=== PATIENT | female | born 1930 | race Caucasian/White ===

== ENCOUNTER 2017-10-25 09:49 | Emergency (ER) | payer MEDICARE, MEDICAID ==
[~2017-10-25] VITALS: Ht 160 cm; Wt 56.4 kg
[~2017-10-25 09:49] MED LIST: ADV50250 IH; CETI-1 PO; CITA-278 PO; COMIN IH; DOCU-28 PO; ESOM20CA PO; IBUP-1984 PO; LEVO88TA28 PO; MOME17SP NS; MONT10TA21 PO; ONDA8TAB13 PO
[2017-10-25 10:36] LABS: BASOPHILS # (AUTO) 0.1 X10'3 (0-0.2); EOSINOPHILS # (AUTO) 1.4 X10'3 (0-0.9); EOSINOPHILS % (AUTO) 17.4 % (0-6); HEMOGLOBIN 12.6 g/dl (12.0-16.0); LYMPHOCYTES # (AUTO) 2.6 X10'3 (1.1-4.8); LYMPHOCYTES % (AUTO) 31.3 % (21-51); MEAN CORPUSCULAR HEMOGLOBIN 29.6 PG (27.0-31.0); MEAN CORPUSCULAR HGB CONC 34.1 % (33.0-36.5); MEAN PLATELET VOLUME 8.4 FL (7.4-10.4); MONOCYTES # (AUTO) 0.5 X10'3 (0-0.9); MONOCYTES % (AUTO) 6.3 % (2-12); NEUTROPHILS # (AUTO) 3.7 X10'3 (1.8-7.7); PLATELET COUNT 246 X10'3 (140-440); RED BLOOD COUNT 4.26 X10'6 (4.20-5.60); RED CELL DISTRIBUTION WIDTH 14.5 % (11.5-14.5); WHITE BLOOD COUNT 8.3 X10'3 (4.5-11.0)
[2017-10-25 10:48] LABS: PARTIAL THROMBOPLASTIN TIME 26 SECONDS (22-32); PROTHROMBIN TIME 10.3 SECONDS (9.0-12.0)
[2017-10-25 10:52] LABS: ALANINE AMINOTRANSFERASE 23 U/L (12-78); ALBUMIN 3.4 G/DL (3.4-5.0); ALBUMIN/GLOBULIN RATIO 0.9 (1.1-1.5); ALKALINE PHOSPHATASE 72 IU/L (46-116); ANION GAP 8 (8-16); ASPARTATE AMINO TRANSFERASE 23 U/L (10-37); BILIRUBIN,TOTAL 0.3 MG/DL (0.1-1.0); BLOOD UREA NITROGEN 15 MG/DL (7-18); BUN/CREATININE RATIO 14.2 (6.6-38.0); CHLORIDE 108 MMOL/L (99-107); CREATININE 1.06 MG/DL (0.40-0.90); GLUCOSE 112 MG/DL (70-104); POTASSIUM 3.7 MMOL/L (3.5-5.1); SODIUM 142 MMOL/L (135-145); TOTAL PROTEIN 7.3 G/DL (6.4-8.2); eGFR 49 ML/MIN
[2017-10-25] MEDS ORDERED: methylPREDNISolone sod succ 125mg/2ml vial IV ONE (11:45)
[2017-10-25] MEDS ORDERED: ipratropium/albuterol 3ml nebule NEB ONE (11:45)
[2017-10-25] MEDS ORDERED: doxycycline hyclate 100mg tablet.DR PO STA (13:03)
[2017-10-25] MEDS ORDERED: PRED50TA PO (13:05)
[2017-10-25] MEDS ORDERED: DOXY100C43 PO (13:05)
[2017-10-25 13:37] VITALS: BP 156/76
== END 2017-10-25 13:39 | disposition home or self-care (01) ==
LOC: ER 09:51
DX: J44.1 Chronic obstructive pulmonary disease with (acute) exacerbation (principal); I25.10 Atherosclerotic heart disease of native coronary artery without angina pectoris; K21.9 Gastro-esophageal reflux disease without esophagitis; M81.0 Age-related osteoporosis without current pathological fracture; Z60.2 Problems related to living alone; Z88.8 Allergy status to other drugs, medicaments and biological substances; Z79.899 Other long term (current) drug therapy
CPT/HCPCS: 36415; 71045; 80053; 83880; 84484; 85025; 85610; 85730; 93005; 94640; 94760; 96374; 99285; J2930

== ENCOUNTER 2017-10-30 16:09 | Emergency (ER) | payer MEDICARE, MEDICAID ==
[~2017-10-30] VITALS: Ht 160 cm; Wt 56.8 kg
[~2017-10-30 16:09] MED LIST changes: +DOXY100C43 PO; +PRED50TA PO
[2017-10-30] MEDS ORDERED: ondansetron/PF 4mg/2ml inj IV ONE (16:15)
[2017-10-30] MEDS ORDERED: famotidine/PF 10 mg/ml inj IV ONE (16:15)
[2017-10-30] MEDS ORDERED: normal saline 1000ML IV soln IVB ONE (16:15)
[2017-10-30 16:46] LABS: BASOPHILS % (AUTO) 0.1 % (0-1); EOSINOPHILS % (AUTO) 0 % (0-6); LYMPHOCYTES # (AUTO) 1.9 X10'3 (1.1-4.8); LYMPHOCYTES % (AUTO) 23.9 % (21-51); MEAN CORPUSCULAR HEMOGLOBIN 29.1 PG (27.0-31.0); MEAN CORPUSCULAR HGB CONC 33.5 % (33.0-36.5); MEAN PLATELET VOLUME 8.5 FL (7.4-10.4); MONOCYTES # (AUTO) 0.3 X10'3 (0-0.9); MONOCYTES % (AUTO) 3.8 % (2-12); NEUTROPHILS # (AUTO) 5.7 X10'3 (1.8-7.7); NEUTROPHILS % (AUTO) 72.2 % (42-75); PLATELET COUNT 211 X10'3 (140-440); RED BLOOD COUNT 3.79 X10'6 (4.20-5.60); RED CELL DISTRIBUTION WIDTH 14.2 % (11.5-14.5); WHITE BLOOD COUNT 7.9 X10'3 (4.5-11.0)
[2017-10-30 16:50] VITALS: BP 162/79
[2017-10-30 16:50] LABS: CLARITY,URINE CLOUDY (Clear); COLOR,URINE YELLOW (Yellow); GLUCOSE, URINE NEGATIVE (Neg); KETONES,URINE TRACE mg/dl (Neg); LEUKOCYTE ESTERASE ,URINE NEGATIVE (Neg); NITRITES, URINE NEGATIVE (Neg); OCCULT BLOOD,URINE NEGATIVE (Neg); PROTEIN,URINE NEGATIVE (Neg); UROBILINOGEN,URINE 0.2 E.U/dL (0.2-1.0)
[2017-10-30 16:53] LABS: UA COLLECTION TYPE CLN CATCH MIDSTREAM
[2017-10-30 16:58] LABS: CAL OXALATE CRYSTALS 4+ /HPF (NEGATIVE); MUCUS STRANDS MODERATE /LPF (Neg); SQUAMOUS EPITHELIAL CELL,UR FEW /LPF (FEW)
[2017-10-30 16:59] LABS: BACTERIA,URINE FEW /HPF (Neg); RBC,URINE 0-2 /HPF (0-2); WBC,URINE 0-4 /HPF (0-4)
[2017-10-30 17:00] LABS: ALANINE AMINOTRANSFERASE 26 U/L (12-78); ALBUMIN 2.8 G/DL (3.4-5.0); ALBUMIN/GLOBULIN RATIO 0.9 (1.1-1.5); ALKALINE PHOSPHATASE 57 IU/L (46-116); ANION GAP 10 (8-16); ASPARTATE AMINO TRANSFERASE 18 U/L (10-37); BILIRUBIN,TOTAL 0.2 MG/DL (0.1-1.0); BLOOD UREA NITROGEN 23 MG/DL (7-18); BUN/CREATININE RATIO 20.2 (6.6-38.0); CALCIUM 8.4 MG/DL (8.5-10.1); CHLORIDE 108 MMOL/L (99-107); CREATININE 1.14 MG/DL (0.40-0.90); GLUCOSE 148 MG/DL (70-104); HYALINE CASTS 0-3 /LPF (NEGATIVE); POTASSIUM 3.3 MMOL/L (3.5-5.1); SODIUM 142 MMOL/L (135-145); TOTAL CARBON DIOXIDE 24.3 MMOL/L (24-32); TOTAL PROTEIN 5.8 G/DL (6.4-8.2); eGFR 45 ML/MIN
[2017-10-30] MEDS ORDERED: ONDA4TAB9 SL (17:22)
== END 2017-10-30 18:08 | disposition home or self-care (01) ==
LOC: ER 16:09
DX: T67.5XXA Heat exhaustion, unspecified, initial encounter (principal); E86.0 Dehydration; R11.2 Nausea with vomiting, unspecified; I25.10 Atherosclerotic heart disease of native coronary artery without angina pectoris; J44.9 Chronic obstructive pulmonary disease, unspecified; K21.9 Gastro-esophageal reflux disease without esophagitis; Z98.890 Other specified postprocedural states; Z60.2 Problems related to living alone; Z90.89 Acquired absence of other organs; Z88.8 Allergy status to other drugs, medicaments and biological substances; Z79.899 Other long term (current) drug therapy; X58.XXXA Exposure to other specified factors, initial encounter; Y93.89 Activity, other specified; Y92.89 Other specified places as the place of occurrence of the external cause; Y99.8 Other external cause status
CPT/HCPCS: 36415; 80053; 81001; 85025; 96361; 96374; 96375; 99284; J2405; J3490; J7030

== ENCOUNTER 2017-12-17 06:22 | Emergency (ER) | payer MEDICARE, MEDICAID ==
[~2017-12-17] VITALS: Ht 157.5 cm; Wt 55.7 kg
[~2017-12-17 06:22] MED LIST changes: -DOXY100C43 PO
[2017-12-17] MEDS ORDERED: benzonatate 100mg capsule PO ONE (06:50)
[2017-12-17 07:00] LABS: BASOPHILS # (AUTO) 0.1 X10'3 (0-0.2); EOSINOPHILS # (AUTO) 1.8 X10'3 (0-0.9); HEMATOCRIT 38.6 % (35.0-45.0); HEMOGLOBIN 12.9 g/dl (12.0-16.0); LYMPHOCYTES # (AUTO) 3.4 X10'3 (1.1-4.8); LYMPHOCYTES % (AUTO) 33.3 % (21-51); MEAN CORPUSCULAR HEMOGLOBIN 29.5 PG (27.0-31.0); MEAN CORPUSCULAR HGB CONC 33.5 % (33.0-36.5); MEAN CORPUSCULAR VOLUME 88.3 FL (78-98); MEAN PLATELET VOLUME 8.4 FL (7.4-10.4); MONOCYTES # (AUTO) 0.7 X10'3 (0-0.9); MONOCYTES % (AUTO) 6.5 % (2-12); NEUTROPHILS # (AUTO) 4.1 X10'3 (1.8-7.7); NEUTROPHILS % (AUTO) 41.2 % (42-75); PLATELET COUNT 274 X10'3 (140-440); RED BLOOD COUNT 4.37 X10'6 (4.20-5.60); RED CELL DISTRIBUTION WIDTH 13.5 % (11.5-14.5); WHITE BLOOD COUNT 10.1 X10'3 (4.5-11.0)
[2017-12-17 07:16] LABS: ALANINE AMINOTRANSFERASE 19 U/L (12-78); ALBUMIN 3.3 G/DL (3.4-5.0); ALBUMIN/GLOBULIN RATIO 0.9 (1.1-1.5); ALKALINE PHOSPHATASE 69 IU/L (46-116); ANION GAP 9 (8-16); ASPARTATE AMINO TRANSFERASE 19 U/L (10-37); BILIRUBIN,TOTAL 0.4 MG/DL (0.1-1.0); BLOOD UREA NITROGEN 11 MG/DL (7-18); BUN/CREATININE RATIO 11.2 (6.6-38.0); CALCIUM 8.7 MG/DL (8.5-10.1); CHLORIDE 108 MMOL/L (99-107); CREATININE 0.98 MG/DL (0.40-0.90); GLUCOSE 90 MG/DL (70-104); POTASSIUM 3.3 MMOL/L (3.5-5.1); SODIUM 142 MMOL/L (135-145); TOTAL CARBON DIOXIDE 24.8 MMOL/L (24-32); TOTAL PROTEIN 6.8 G/DL (6.4-8.2); eGFR 54 ML/MIN
[2017-12-17] MEDS ORDERED: BENZ-16 PO (07:30)
[2017-12-17 07:44] VITALS: BP 152/68
== END 2017-12-17 07:46 | disposition home or self-care (01) ==
LOC: ER 06:22
DX: J44.9 Chronic obstructive pulmonary disease, unspecified (principal); I25.10 Atherosclerotic heart disease of native coronary artery without angina pectoris; K21.9 Gastro-esophageal reflux disease without esophagitis; M81.0 Age-related osteoporosis without current pathological fracture; Z98.51 Tubal ligation status; Z88.8 Allergy status to other drugs, medicaments and biological substances
CPT/HCPCS: 36415; 71045; 80053; 84484; 85025; 93005; 99285

== ENCOUNTER 2017-12-29 03:02 | Emergency (ER) | payer MEDICARE, MEDICAID ==
[~2017-12-29] VITALS: Ht 160 cm; Wt 56.4 kg
[~2017-12-29 03:02] MED LIST changes: +BENZ-16 PO
[2017-12-29 06:14] LABS: BASOPHILS # (AUTO) 0.1 X10'3 (0-0.2); BASOPHILS % (AUTO) 0.6 % (0-1); EOSINOPHILS % (AUTO) 21.6 % (0-6); HEMATOCRIT 34.8 % (35.0-45.0); HEMOGLOBIN 11.7 g/dl (12.0-16.0); LYMPHOCYTES # (AUTO) 2.5 X10'3 (1.1-4.8); LYMPHOCYTES % (AUTO) 27.4 % (21-51); MEAN CORPUSCULAR HEMOGLOBIN 29.3 PG (27.0-31.0); MEAN CORPUSCULAR HGB CONC 33.6 % (33.0-36.5); MEAN CORPUSCULAR VOLUME 87.3 FL (78-98); MEAN PLATELET VOLUME 8.4 FL (7.4-10.4); MONOCYTES # (AUTO) 0.6 X10'3 (0-0.9); MONOCYTES % (AUTO) 6.8 % (2-12); NEUTROPHILS % (AUTO) 43.6 % (42-75); PLATELET COUNT 249 X10'3 (140-440); RED BLOOD COUNT 3.98 X10'6 (4.20-5.60); RED CELL DISTRIBUTION WIDTH 14.7 % (11.5-14.5); WHITE BLOOD COUNT 9.1 X10'3 (4.5-11.0)
[2017-12-29 06:28] LABS: ALANINE AMINOTRANSFERASE 22 U/L (12-78); ALBUMIN/GLOBULIN RATIO 0.9 (1.1-1.5); ALKALINE PHOSPHATASE 74 IU/L (46-116); ANION GAP 9 (8-16); ASPARTATE AMINO TRANSFERASE 21 U/L (10-37); BILIRUBIN,TOTAL 0.2 MG/DL (0.1-1.0); BLOOD UREA NITROGEN 14 MG/DL (7-18); BUN/CREATININE RATIO 15.4 (6.6-38.0); CALCIUM 8.5 MG/DL (8.5-10.1); CHLORIDE 110 MMOL/L (99-107); CREATININE 0.91 MG/DL (0.40-0.90); GLUCOSE 89 MG/DL (70-104); POTASSIUM 3.8 MMOL/L (3.5-5.1); SODIUM 144 MMOL/L (135-145); TOTAL CARBON DIOXIDE 24.6 MMOL/L (24-32); TOTAL PROTEIN 6.2 G/DL (6.4-8.2); eGFR 58 ML/MIN
[2017-12-29] MEDS ORDERED: ibuprofen tablet 400 MG TABLET PO ONE (07:20)
[2017-12-29] MEDS ORDERED: ipratropium/albuterol 3ml nebule NEB ONE (07:20)
[2017-12-29] MEDS ORDERED: guaiFENesin/codeine phos 10ml UD oral syrup PO ONE (07:20)
[2017-12-29] MEDS ORDERED: dexamethasone sod phosphate 10mg/ml inj IM STA (07:24)
[2017-12-29 07:29] LABS: PLATELET ESTIMATE NORMAL; TOTAL CELLS COUNTED 100
[2017-12-29] MEDS ORDERED: GUAI10SY2 PO (08:04)
[2017-12-29 08:22] VITALS: BP 158/81
== END 2017-12-29 08:23 | disposition home or self-care (01) ==
LOC: ER 03:03
DX: M54.5 Low back pain (principal); R05 Cough; M25.551 Pain in right hip; M79.651 Pain in right thigh; R10.9 Unspecified abdominal pain; I25.10 Atherosclerotic heart disease of native coronary artery without angina pectoris; J44.9 Chronic obstructive pulmonary disease, unspecified; K21.9 Gastro-esophageal reflux disease without esophagitis; K44.9 Diaphragmatic hernia without obstruction or gangrene; M41.9 Scoliosis, unspecified; Z98.51 Tubal ligation status; Z98.890 Other specified postprocedural states; Z60.2 Problems related to living alone; Z88.8 Allergy status to other drugs, medicaments and biological substances; Z79.899 Other long term (current) drug therapy
CPT/HCPCS: 36415; 71045; 72170; 73552; 80053; 85025; 94640; 94760; 96372; 99285; J1100

== ENCOUNTER 2018-10-23 12:15 | Emergency (ER) | payer MEDICARE, MEDICAID ==
[~2018-10-23] VITALS: Ht 160 cm; Wt 57.7 kg
[~2018-10-23 12:15] MED LIST changes: -BENZ-16 PO; -CITA-278 PO; +CITA20TA28 PO
[2018-10-23] MEDS ORDERED: normal saline 1000ML IV soln IVB ONE (12:25)
[2018-10-23] MEDS ORDERED: ondansetron/PF 4mg/2ml inj IV ONE (12:25)
[2018-10-23] MEDS ORDERED: ketorolac trometh. 30mg/ml inj. IV ONE (12:25)
[2018-10-23 12:57] LABS: BASOPHILS % (AUTO) 0.4 % (0-1); EOSINOPHILS # (AUTO) 0.6 X10'3 (0-0.9); HEMATOCRIT 35.3 % (35.0-45.0); HEMOGLOBIN 11.4 g/dl (12.0-16.0); LYMPHOCYTES # (AUTO) 3.8 X10'3 (1.1-4.8); LYMPHOCYTES % (AUTO) 32.9 % (21-51); MEAN CORPUSCULAR HEMOGLOBIN 27.7 PG (27.0-31.0); MEAN CORPUSCULAR HGB CONC 32.2 g/dL (33.0-36.5); MEAN CORPUSCULAR VOLUME 86.2 FL (78-98); MEAN PLATELET VOLUME 8.1 FL (7.4-10.4); MONOCYTES # (AUTO) 1.1 X10'3 (0-0.9); MONOCYTES % (AUTO) 9.3 % (2-12); NEUTROPHILS # (AUTO) 6.1 X10'3 (1.8-7.7); NEUTROPHILS % (AUTO) 52.4 % (42-75); PLATELET COUNT 242 X10'3 (140-440); RED CELL DISTRIBUTION WIDTH 14.2 % (11.5-14.5); WHITE BLOOD COUNT 11.6 X10'3 (4.5-11.0)
[2018-10-23 13:12] LABS: ALANINE AMINOTRANSFERASE 22 U/L (12-78); ALBUMIN 3.1 G/DL (3.4-5.0); ALBUMIN/GLOBULIN RATIO 0.9 (1.1-1.5); ALKALINE PHOSPHATASE 69 IU/L (46-116); ANION GAP 7 (8-16); ASPARTATE AMINO TRANSFERASE 18 U/L (10-37); BILIRUBIN,TOTAL 0.5 MG/DL (0.1-1.0); BLOOD UREA NITROGEN 17 MG/DL (7-18); BUN/CREATININE RATIO 16.8 (6.6-38.0); CALCIUM 8.6 MG/DL (8.5-10.1); CHLORIDE 106 MMOL/L (99-107); CREATININE 1.01 MG/DL (0.40-0.90); GLUCOSE 106 MG/DL (70-104); POTASSIUM 3.9 MMOL/L (3.5-5.1); SODIUM 138 MMOL/L (135-145); TOTAL CARBON DIOXIDE 24.6 MMOL/L (24-32); TOTAL PROTEIN 6.7 G/DL (6.4-8.2); eGFR 52 ML/MIN
[2018-10-23] MEDS ORDERED: HYDROcodone/acetaminophen 5mg/325mg tablet PO ONE (14:25)
[2018-10-23] MEDS ORDERED: HYDR-3965 PO (14:25)
[2018-10-23 14:51] VITALS: BP 147/64
== END 2018-10-23 14:53 | disposition home or self-care (01) ==
LOC: ER 12:16
DX: M79.18 Myalgia, other site (principal); R11.0 Nausea; I25.10 Atherosclerotic heart disease of native coronary artery without angina pectoris; J44.9 Chronic obstructive pulmonary disease, unspecified; K21.9 Gastro-esophageal reflux disease without esophagitis; F32.9 Major depressive disorder, single episode, unspecified; M81.0 Age-related osteoporosis without current pathological fracture; Z98.51 Tubal ligation status; Z98.890 Other specified postprocedural states; Z77.22 Contact with and (suspected) exposure to environmental tobacco smoke (acute) (chronic); Z60.2 Problems related to living alone; Z88.8 Allergy status to other drugs, medicaments and biological substances; Z79.899 Other long term (current) drug therapy
CPT/HCPCS: 36415; 80053; 85025; 96374; 96375; 99283; J1885; J2405; J7030

== ENCOUNTER 2019-02-10 10:32 | Emergency (ER) | payer MEDICARE, MEDICAID ==
[~2019-02-10] VITALS: Ht 160 cm; Wt 62.0 kg
[2019-02-10] MEDS ORDERED: normal saline 1000ML IV soln IVB ONE (12:10)
[2019-02-10] MEDS ORDERED: ondansetron/PF 4mg/2ml inj IV ONE (12:20)
[2019-02-10 12:33] LABS: BASOPHILS # (AUTO) 0.1 X10'3 (0-0.2); BASOPHILS % (AUTO) 0.8 % (0-1); EOSINOPHILS # (AUTO) 0.3 X10'3 (0-0.9); EOSINOPHILS % (AUTO) 3.5 % (0-6); HEMATOCRIT 37.5 % (35.0-45.0); HEMOGLOBIN 12.6 g/dl (12.0-16.0); LYMPHOCYTES % (AUTO) 22.7 % (21-51); MEAN CORPUSCULAR HGB CONC 33.5 g/dL (33.0-36.5); MEAN CORPUSCULAR VOLUME 86.4 FL (78-98); MEAN PLATELET VOLUME 8.2 FL (7.4-10.4); MONOCYTES # (AUTO) 0.7 X10'3 (0-0.9); MONOCYTES % (AUTO) 8.4 % (2-12); NEUTROPHILS # (AUTO) 5.7 X10'3 (1.8-7.7); NEUTROPHILS % (AUTO) 64.6 % (42-75); PLATELET COUNT 252 X10'3 (140-440); RED BLOOD COUNT 4.34 X10'6 (4.20-5.60); RED CELL DISTRIBUTION WIDTH 14.3 % (11.5-14.5); WHITE BLOOD COUNT 8.8 X10'3 (4.5-11.0)
[2019-02-10 12:49] LABS: ALANINE AMINOTRANSFERASE 24 U/L (12-78); ALBUMIN 3.5 G/DL (3.4-5.0); ALBUMIN/GLOBULIN RATIO 0.9 (1.1-1.5); ALKALINE PHOSPHATASE 70 IU/L (46-116); ANION GAP 10 (8-16); ASPARTATE AMINO TRANSFERASE 23 U/L (10-37); BILIRUBIN,TOTAL 0.3 MG/DL (0.1-1.0); BLOOD UREA NITROGEN 19 MG/DL (7-18); BUN/CREATININE RATIO 16.2 (6.6-38.0); CALCIUM 9.3 MG/DL (8.5-10.1); CHLORIDE 106 MMOL/L (99-107); CREATININE 1.17 MG/DL (0.40-0.90); GLUCOSE 115 MG/DL (70-104); POTASSIUM 3.7 MMOL/L (3.5-5.1); SODIUM 142 MMOL/L (135-145); TOTAL CARBON DIOXIDE 26.2 MMOL/L (24-32); TOTAL PROTEIN 7.5 G/DL (6.4-8.2); eGFR 44 ML/MIN
[2019-02-10 12:52] LABS: LIPASE 137 U/L (73-393); TROPONIN I < 0.04 NG/ML (0.0-0.05)
[2019-02-10 12:57] VITALS: BP 148/108
[2019-02-10 13:05] LABS: ETHANOL < 0.010 GM/DL (0.0-0.010)
[2019-02-10] MEDS ORDERED: ONDA4TAB6 PO (13:45)
[2019-02-10 13:53] LABS: CLARITY,URINE CLEAR (Clear); COLOR,URINE YELLOW (Yellow); GLUCOSE, URINE NEGATIVE (Neg); KETONES,URINE NEGATIVE (Neg); LEUKOCYTE ESTERASE ,URINE NEGATIVE (Neg); NITRITES, URINE NEGATIVE (Neg); OCCULT BLOOD,URINE NEGATIVE (Neg); PROTEIN,URINE NEGATIVE (Neg); UROBILINOGEN,URINE 0.2 E.U/dL (0.2-1.0)
[2019-02-10 13:58] LABS: UA COLLECTION TYPE CLN CATCH MIDSTREAM
[2019-02-10] MEDS ORDERED: normal saline 1000ml 1,000 ML IV SCH (14:07)
[2019-02-10 14:08] LABS: URINE AMPHETAMINE SCREEN NEGATIVE (Neg); URINE BARBITUATE SCREEN NEGATIVE (Neg); URINE BENZODIAZEPINES SCREEN NEGATIVE (Neg); URINE CANNABINOID SCREEN NEGATIVE (Neg); URINE COCAINE SCREEN NEGATIVE (Neg); URINE METHADONE SCREEN NEGATIVE (Neg); URINE OPIATE SCREEN NEGATIVE (Neg); URINE PHENCYCLIDINE SCREEN NEGATIVE (Neg)
[2019-02-10] MEDS ORDERED: K and/or MAG REPLACEMENT MC SCH (14:10)
[2019-02-10] MEDS ORDERED: morphine 2 MG/ML inj. syringe IV PRN ×2 (14:10)
[2019-02-10] MEDS ORDERED: acetaminophen 650mg rectal suppository RC PRN (14:10)
[2019-02-10] MEDS ORDERED: magnesium 4gm in 100ml NS 100 ML IV PRN (14:10)
[2019-02-10] MEDS ORDERED: HYDROcodone/acetaminophen 10/325mg tab PO PRN (14:10)
[2019-02-10] MEDS ORDERED: aminophylline 250mg/10ml inj. IV PRN (14:10)
[2019-02-10] MEDS ORDERED: regadenoson 0.4mg/5ml syringe IV PRN (14:10)
[2019-02-10] MEDS ORDERED: magnesium Cl slow-release 64mg tablet PO PRN (14:10)
[2019-02-10] MEDS ORDERED: potassium CL 10mEq/100ml bag 100 ML IV PRN ×2 (14:10)
[2019-02-10] MEDS ORDERED: magnesium hydroxide 30ml (MOM) UD suspension PO PRN (14:10)
[2019-02-10] MEDS ORDERED: nitroGLYCERIN 0.4mg SUBLingual tab SL PRN (14:10)
[2019-02-10] MEDS ORDERED: mag hydrox/Alum hydrox/simeth 30ml oral suspension PO PRN (14:10)
[2019-02-10] MEDS ORDERED: HYDROcodone/acetaminophen 5mg/325mg tablet PO PRN (14:10)
[2019-02-10] MEDS ORDERED: diphenhydrAMINE 50 mg/ml inj IV PRN (14:10)
[2019-02-10] MEDS ORDERED: diphenhydrAMINE 25mg capsule PO PRN (14:10)
[2019-02-10] MEDS ORDERED: potassium Cl 20 mEq SR tablet PO PRN ×2 (14:10)
[2019-02-10] MEDS ORDERED: magnesium 2GM in 50ml NS 50 ML IV PRN (14:10)
[2019-02-10] MEDS ORDERED: metoprolol tartrate 1mg/ml inj IV PRN (14:10)
[2019-02-10] MEDS ORDERED: ondansetron/PF 4mg/2ml inj IV PRN (14:10)
[2019-02-10] MEDS ORDERED: acetaminophen 325mg tablet PO PRN ×2 (14:10)
[2019-02-10] MEDS ORDERED: heparin, porcine 5000 units/ml vial SQ SCH (20:00)
[2019-02-10] MEDS ORDERED: temazepam 15mg capsule PO PRN (21:00)
== END 2019-02-10 14:22 | disposition home or self-care (01) ==
LOC: ER 10:32
DX: R41.0 Disorientation, unspecified (principal); R06.02 Shortness of breath; R11.0 Nausea; K44.9 Diaphragmatic hernia without obstruction or gangrene; I25.10 Atherosclerotic heart disease of native coronary artery without angina pectoris; J44.9 Chronic obstructive pulmonary disease, unspecified; K21.9 Gastro-esophageal reflux disease without esophagitis; F32.9 Major depressive disorder, single episode, unspecified; M81.0 Age-related osteoporosis without current pathological fracture; Z98.51 Tubal ligation status; Z98.890 Other specified postprocedural states; Z60.2 Problems related to living alone; Z88.0 Allergy status to penicillin; Z79.899 Other long term (current) drug therapy; K57.90 Diverticulosis of intestine, part unspecified, without perforation or abscess without bleeding
CPT/HCPCS: 36415; 70450; 71045; 74176; 80053; 80305; 80320; 81003; 82948; 83690; 84484; 85025; 85610; 93005; 96374; 99284; J2405; J7040

== ENCOUNTER 2020-02-15 11:28 | Emergency (ER) | payer MEDICARE, MEDICAID ==
[~2020-02-15] VITALS: Ht 162.6 cm; Wt 50.0 kg
[~2020-02-15 11:28] MED LIST changes: +ONDA4TAB6 PO
[2020-02-15 11:47] VITALS: BP 127/79
[2020-02-15] MEDS ORDERED: methylPREDNISolone sod succ 125mg/2ml vial IV ONE (13:20)
[2020-02-15 14:26] LABS: BASOPHILS # (AUTO) 0.1 X10'3 (0-0.2); BASOPHILS % (AUTO) 0.9 % (0-1); EOSINOPHILS # (AUTO) 1.3 X10'3 (0-0.9); EOSINOPHILS % (AUTO) 12.4 % (0-6); HEMATOCRIT 38.8 % (35.0-45.0); HEMOGLOBIN 12.5 g/dl (12.0-16.0); LYMPHOCYTES # (AUTO) 3.8 X10'3 (1.1-4.8); LYMPHOCYTES % (AUTO) 37.1 % (21-51); MEAN CORPUSCULAR HGB CONC 32.2 g/dL (33.0-36.5); MEAN CORPUSCULAR VOLUME 86.8 FL (78-98); MEAN PLATELET VOLUME 8.9 FL (7.4-10.4); MONOCYTES # (AUTO) 0.8 X10'3 (0-0.9); MONOCYTES % (AUTO) 8.1 % (2-12); NEUTROPHILS # (AUTO) 4.2 X10'3 (1.8-7.7); NEUTROPHILS % (AUTO) 41.5 % (42-75); PLATELET COUNT 265 X10'3 (140-440); RED BLOOD COUNT 4.47 X10'6 (4.20-5.60); RED CELL DISTRIBUTION WIDTH 14.3 % (11.5-14.5); WHITE BLOOD COUNT 10.1 X10'3 (4.5-11.0)
[2020-02-15 14:43] LABS: PARTIAL THROMBOPLASTIN TIME 27 SECONDS (22-32)
[2020-02-15] MEDS ORDERED: predniSONE 20 mg tablet PO ONE (14:45)
[2020-02-15 14:48] LABS: ALANINE AMINOTRANSFERASE 21 U/L (12-78); ALBUMIN 3.6 G/DL (3.4-5.0); ALBUMIN/GLOBULIN RATIO 0.9 (1.1-1.5); ALKALINE PHOSPHATASE 96 IU/L (46-116); ANION GAP 6 (8-16); ASPARTATE AMINO TRANSFERASE 20 U/L (10-37); BILIRUBIN,TOTAL 0.3 MG/DL (0.1-1.0); BLOOD UREA NITROGEN 12 MG/DL (7-18); BUN/CREATININE RATIO 12.8 (6.6-38.0); CALCIUM 9.1 MG/DL (8.5-10.1); CHLORIDE 107 MMOL/L (99-107); CREATININE 0.94 MG/DL (0.40-0.90); GLUCOSE 91 MG/DL (70-104); POTASSIUM 3.8 MMOL/L (3.5-5.1); SODIUM 143 MMOL/L (135-145); TOTAL CARBON DIOXIDE 29.8 MMOL/L (24-32); TOTAL PROTEIN 7.8 G/DL (6.4-8.2); eGFR 56 ML/MIN
[2020-02-15] MEDS ORDERED: METH32TA2 PO (15:42)
[2020-02-15] MEDS ORDERED: ALBU8HFA PO (15:43)
--- NOTE | 2020-02-16 10:28 | NUR ---
Patients swab is unable to be run as collected yesterday. Patient called to recollect COVID specimen.
== END 2020-02-15 16:00 | disposition home or self-care (01) ==
LOC: ER 11:29
DX: J44.1 Chronic obstructive pulmonary disease with (acute) exacerbation (principal); R06.02 Shortness of breath; R05 Cough; I25.10 Atherosclerotic heart disease of native coronary artery without angina pectoris; K21.9 Gastro-esophageal reflux disease without esophagitis; F32.9 Major depressive disorder, single episode, unspecified; Z98.51 Tubal ligation status; Z98.890 Other specified postprocedural states; Z60.2 Problems related to living alone; Z88.8 Allergy status to other drugs, medicaments and biological substances; Z79.899 Other long term (current) drug therapy
CPT/HCPCS: 36415; 71045; 80053; 83605; 83880; 84484; 85025; 85610; 85730; 87040; 93005; 99285; J7512